=== PATIENT | male | born 1945 | race Two or more races ===

== ENCOUNTER 2022-09-05 23:27 | Inpatient (IN) | payer MEDICARE, OTHER ==
[~2022-09-05] VITALS: Ht 170.2 cm; Wt 79.4 kg
[2022-09-06] MEDS ORDERED: TDAP [DIPH/PERTUSSIS/TET] 0.5 ML VIAL IM ONE ×2 (00:28)
[2022-09-06] MEDS ORDERED: LORAZEPAM INJ 2 MG/ML VIAL ONE (00:52)
[2022-09-06] MEDS ORDERED: LORAZEPAM INJ 2 MG/ML VIAL IV ONE (01:00)
--- NOTE | 2022-09-06 01:04 | NUR ---
EARL SENT TO LAB
[2022-09-06 01:29] LABS: BASOPHILS % (AUTO) 0.4 % (0.0-2.0); EOSINOPHILS % (AUTO) 0.6 % (0.0-6.0); HEMATOCRIT 40 % (39-51); HEMOGLOBIN 13.6 g/dL (13.5-17.5); LYMPHOCYTES # (AUTO) 1.1 K/uL (0.8-4.8); LYMPHOCYTES % (AUTO) 10.5 % (20.0-44.0); MEAN CORPUSCULAR HGB CONC 34 g/dl (31.0-36.0); MEAN CORPUSCULAR VOLUME 93 fL (80-96); MONOCYTES # (AUTO) 0.6 K/uL (0.1-1.30); MONOCYTES % (AUTO) 5.6 % (2.0-12.0); NEUTROPHILS # (AUTO) 8.5 K/uL (1.8-8.9); NEUTROPHILS % (AUTO) 82.9 % (43.0-81.0); PLATELET COUNT (AUTO) 238 K/uL (150-450); RED BLOOD CELL COUNT(AUTO) 4.35 MIL/uL (4.5-6.0); WHITE BLOOD COUNT (AUTO) 10.2 K/uL (4.3-11.0)
[2022-09-06] MEDS ORDERED: LIDOCAINE HCL/MPF 1% 30 ML VIAL IJ ONE (01:33)
[2022-09-06 01:46] LABS: ALANINE AMINOTRANSFERASE 23 U/L (12-78); ALKALINE PHOSPHATASE 80 U/L (46-116); ASPARTATE AMINOTRANSFERASE 20 U/L (15-37); BILIRUBIN,DIRECT 0.1 mg/dL (0.0-0.2); BILIRUBIN,TOTAL 0.3 mg/dL (0.2-1.0); CARBON DIOXIDE 20 mmol/L (21-32); CHLORIDE 102 mmol/L (98-107); CREATININE 1.3 mg/dL (0.6-1.3); GLUCOSE 158 mg/dL (74-106); POTASSIUM 4.1 mmol/L (3.5-5.1); SODIUM SERUM 135 mmol/L (136-145); TOTAL PROTEIN, SERUM 7.8 g/dL (6.4-8.2); UREA NITROGEN, BLOOD 12 mg/dL (7-18)
--- NOTE | 2022-09-06 03:01 | NUR ---
pt pulled out iv. inserted a new line R hand, #22g, SL.
[2022-09-06] MEDS ORDERED: AMOX/CLAVULANATE 875 MG TABLET PO ONE (04:00)
--- NOTE | 2022-09-06 04:18 | NUR ---
pt is very altered/confused. PO antibiotic withheld for now. MD aware.
[2022-09-06] MEDS ORDERED: HYDROCODONE/APAP 5/325MG TABLET PO PRN (05:30)
[2022-09-06] MEDS ORDERED: ACETAMINOPHEN 325 MG TABLET PO PRN (05:30)
[2022-09-06] MEDS ORDERED: LORAZEPAM INJ 2 MG/ML VIAL IV PRN (05:30)
[2022-09-06] MEDS ORDERED: MAGNESIUM HYDROXIDE 30 ML UDC PO PRN (05:30)
[2022-09-06] MEDS ORDERED: MORPHINE SULFATE INJ 2 MG/ML DISP.SYRIN IV PRN (05:30)
[2022-09-06 06:32] VITALS: BP 122/64
--- NOTE | 2022-09-06 06:41 | NUR ---
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
--- NOTE | 2022-09-06 06:46 | NUR ---
RECEIVED PATIENT FROM ED AT 0632 [facility] [employer]. A/O X1. BREATHING EVEN AND NON-LABORED, ON O2 AT 4LPM VIA NASAL CANULA. HAS RIGHT HAND IV ACCESS #22G AND SALINE LOCKED. VITAL SIGNS TAKEN. SAFETY MEASURES IN PLACE. WILL ENDORSE TO NEXT SHIFT TO CONTINUE ADMISSION.
[2022-09-06 08:00] VITALS: BP 117/56
[2022-09-06] MEDS ORDERED: DOCUSATE SODIUM 100 MG CAPSULE PO SCH (09:00)
[2022-09-06] MEDS: PANTOPRAZOLE 40 MG TABLET.DR PO SCH (09:08)
[2022-09-06] MEDS: LamoTRIgine 100 MG TABLET PO SCH ×2 (09:08→20:18)
[2022-09-06] MEDS: LEVETIRACETAM (250 MG) 250 MG TABLET PO SCH ×2 (09:09→17:11)
[2022-09-06] MEDS: LEVOTHYROXINE SODIUM 75 MCG TABLET PO SCH (09:09)
[2022-09-06] MEDS: QUETIAPINE FUMARATE 25 MG TABLET PO SCH ×2 (09:11→17:11)
[2022-09-06] MEDS: ENOXAPARIN SODIUM 40 MG/0.4 ML DISP.SYRIN SQ SCH (12:17)
--- NOTE | 2022-09-06 14:00 | NUR ---
PATIENT NOTED TRYING TO GET OUT OF THE BED, REMOVING DIAPER AND CLOTHES, TRIED REMOVING PERIPHERAL LINE, REORRIENTED THE PATIENT BUT STILL KEEP DOING IT, INFORMED DR. ADAMS WITH ORDER FOR RESTRAINT, NOTED AND CARRIED OUT.
[2022-09-06] MEDS: DOCUSATE SODIUM LIQ 100 MG/10 ML UDC PO SCH (17:11)
--- NOTE | 2022-09-06 18:48 | NUR ---
MED SURG CLOSING NOTES PATIENT AWAKE, A/O X1. BREATHING EVEN AND NON-LABORED, ON O2 AT 4LPM VIA NASAL CANULA, NOT IN ANY DISTRESS, HAS RIGHT HAND IV ACCESS #22G PATENT AND INTACT, FLUSHES WELL, COVERED WITH KERLIX. BILATERAL SOFT WRIST RESTRAINT INTACT, CHECK FOR SKIN AND CIRCULATION. BED IN LOWEST POSITION. CALL LIGHT WITHIN REACH. SAFETY MEASURES IN PLACED. BED ALARM ON. WILL ENDORSE TO NIGHT NURSE FOR MARIUSZ.
--- NOTE | 2022-09-06 19:00 | NUR ---
RN OPENING NOTE RECEIVED PT ASLEEP IN BED. PT IS A/O X 1, KHMER SPEAKING, ABLE TO SPEAK AND UNDERSTAND SIMPLE INDONESIAN. PT IS 4L O2 INHALATION VIA NASAL CANNULA, TOLERATING WELL,BREATHING EVEN AND UNLABORED @ THIS TIME. PT IV PRESENT AT RIGHT HAND #22G SALINE LOCK, PATENT, INTACT AND FLUSHES WELL W/ NO S &SX OF INFILTRATION @ SITE NOTED. PT IS ON DIAPER. SAFETY MEASURE IS IN PLACE. BED IN LOWEST AND LOCKED POSITION. SIDE RAILS UP X 2. BEDSIDE TABLE AND CALL LIGHT IS WITHIN REACH. BED ALARM IS ON. WILL CONTINUE TO MONITOR PT ACCORDINGLY.
[2022-09-06 21:00] VITALS: BP 137/84
[2022-09-06] MEDS: OLANZAPINE 5 MG TABLET PO SCH (21:40)
[2022-09-07 05:00] VITALS: BP 151/93
--- NOTE | 2022-09-07 06:38 | NUR ---
RN CLOSING NOTE PT ASLEEP & RESTING COMFORTABLY IN BED. PT IS A/O X 1, GERMAN SPEAKING, RESPONSIVE. PT IS 4L O2 INHALATION VIA NASAL CANNULA, W/ NO S & SX OF RESPIRATORY DISTRESS @ THIS TIME. PT IV PRESENT AT RIGHT HAND #22G SALINE LOCK, PATENT, INTACT AND FLUSHES WELL W/ NO S &SX OF INFILTRATION @ SITE NOTED. PT DIAPER CHANGE X 4. PT KEPT CLEAN & DRY. ADMINISTERED MEDICATION ACCORDINGLY PER MD'S ORDER. SAFETY MEASURE IS IN PLACE. BED IN LOWEST AND LOCKED POSITION. SIDE RAILS UP X 2. BEDSIDE TABLE AND CALL LIGHT IS WITHIN REACH. BED ALARM IS ON. WILL ENDORSE TO THE NEXT ENDORSEMENT FOR MARIUSZ.
[2022-09-07 07:09] LABS: BASOPHILS # (AUTO) 0.1 K/uL (0.0-0.2); BASOPHILS % (AUTO) 0.7 % (0.0-2.0); HEMATOCRIT 45 % (39-51); LYMPHOCYTES # (AUTO) 1.9 K/uL (0.8-4.8); LYMPHOCYTES % (AUTO) 21.1 % (20.0-44.0); MEAN CORPUSCULAR HGB CONC 33 g/dl (31.0-36.0); MEAN CORPUSCULAR VOLUME 94 fL (80-96); MONOCYTES # (AUTO) 1.2 K/uL (0.1-1.30); MONOCYTES % (AUTO) 13.9 % (2.0-12.0); NEUTROPHILS # (AUTO) 5.3 K/uL (1.8-8.9); NEUTROPHILS % (AUTO) 60.3 % (43.0-81.0); PLATELET COUNT (AUTO) 241 K/uL (150-450); RED BLOOD CELL COUNT(AUTO) 4.81 MIL/uL (4.5-6.0); WHITE BLOOD COUNT (AUTO) 8.8 K/uL (4.3-11.0)
[2022-09-07 07:18] LABS: CALCIUM, SERUM 9.2 mg/dL (8.5-10.1); CARBON DIOXIDE 26 mmol/L (21-32); CHLORIDE 104 mmol/L (98-107); CREATININE 0.9 mg/dL (0.6-1.3); GLUCOSE 107 mg/dL (74-106); SODIUM SERUM 139 mmol/L (136-145); UREA NITROGEN, BLOOD 8 mg/dL (7-18)
[2022-09-07 08:09] LABS: THYROID STIMULATING HORMONE 2.202 uIU/mL (0.358-3.74)
--- NOTE | 2022-09-07 10:22 | NUR ---
RN NOTE GAVE REPORT TO HARRIETT APONTE FOR CONTUITY OF CARE
[2022-09-07] MEDS: LEVETIRACETAM (250 MG) 250 MG TABLET PO SCH ×2 (11:28→18:30)
[2022-09-07] MEDS: LEVOTHYROXINE SODIUM 75 MCG TABLET PO SCH (11:29)
[2022-09-07] MEDS: LamoTRIgine 100 MG TABLET PO SCH ×2 (11:29→22:46)
[2022-09-07] MEDS: DOCUSATE SODIUM LIQ 100 MG/10 ML UDC PO SCH ×2 (11:29→18:30)
[2022-09-07] MEDS: QUETIAPINE FUMARATE 25 MG TABLET PO SCH ×2 (11:29→18:30)
[2022-09-07] MEDS: PANTOPRAZOLE 40 MG TABLET.DR PO SCH (11:29)
[2022-09-07] MEDS: ENOXAPARIN SODIUM 40 MG/0.4 ML DISP.SYRIN SQ SCH (11:31)
[2022-09-07 13:00] VITALS: BP 126/76
[2022-09-07] MEDS ORDERED: MULT-24 PO (13:44)
[2022-09-07] MEDS ORDERED: IBUP-1953 PO (13:44)
[2022-09-07] MEDS ORDERED: LEVE500T9 PO (13:44)
[2022-09-07] MEDS ORDERED: LAMO200T10 PO (13:44)
[2022-09-07] MEDS ORDERED: IPRA3AMP23 IH (13:44)
[2022-09-07] MEDS ORDERED: PANT40TA2 PO (13:44)
[2022-09-07] MEDS ORDERED: ACET-2605 PO (13:44)
[2022-09-07] MEDS ORDERED: ONDA4TAB5 PO (13:44)
[2022-09-07] MEDS ORDERED: ASCO-352 PO (13:44)
[2022-09-07] MEDS ORDERED: SENN-261 PO (13:44)
[2022-09-07] MEDS ORDERED: QUET100T PO (13:44)
[2022-09-07] MEDS ORDERED: LEVO100T9 PO (13:44)
[2022-09-07] MEDS ORDERED: ACET-868 PO (13:44)
[2022-09-07] MEDS ORDERED: OLAN10TA3 PO (13:44)
[2022-09-07 20:00] VITALS: BP 120/60
--- NOTE | 2022-09-07 20:00 | NUR ---
RN OPENING NOTE RECEIVED PT AWAKE IN BED. PT IS A/O X 1, MALTESE SPEAKING, PT IS 4L O2 INHALATION VIA NASAL CANNULA, TOLERATING WELL,BREATHING EVEN AND UNLABORED @ THIS TIME. PT IV PRESENT AT RIGHT HAND #22G SALINE LOCK, PATENT, INTACT AND FLUSHES WELL W/ NO S &SX OF INFILTRATION .SAFETY MEASURE IS IN PLACE. BED IN LOWEST AND LOCKED POSITION. SIDE RAILS UP X 2. BEDSIDE TABLE AND CALL LIGHT IS WITHIN REACH. BED ALARM ON.ON BILATERAL WRIST RESTRAINT TO PREVENT PULLING INVASIVE TUBING WILL CONTINUE TO MONITOR PT ACCORDINGLY.
[2022-09-07] MEDS: OLANZAPINE 5 MG TABLET PO SCH (22:46)
[2022-09-08 04:00] VITALS: BP 109/83
--- NOTE | 2022-09-08 07:12 | NUR ---
RN CLOSING NOTE PT REMAIN IN BED. PT IS A/O X 1, DJIBOUTIAN SPEAKING, ON 4L O2 VIA NASAL CANNULA, W/ NO S & SX OF RESPIRATORY DISTRESS @ THIS TIME. PT IV PRESENT AT RIGHT HAND #22G SALINE LOCK, PATENT, INTACT AND FLUSHES WELL W/ NO S &SX OF INFILTRATION @ SITE NOTED. PT KEPT CLEAN & DRY. BILATERAL SOFT WRIST RESTRAINT . SAFETY MEASURE IS IN PLACE. BED IN LOWEST AND LOCKED POSITION. SIDE RAILS UP X 2. BEDSIDE TABLE AND CALL LIGHT IS WITHIN REACH. BED ALARM IS ON. WILL ENDORSE TO RN DAY SHIFT FOR CONTINUITY OF CARE..
--- NOTE | 2022-09-08 07:25 | NUR ---
RN OPENING NOTE RECEIVED PATIENT IN BED, AWAKE, A/O X1, VERBALLY RESPONSIVE. THAI SPEAKING. NO SIGNS OF ACUTE DISTRESS NOTED. ON O2 INHALATION @4LPM VIA N/C, NO SOB NOTED, BREATHING EVEN AND UNLABORED. NOTED WITH IV ACCESS ON RIGHT HAND #22G, INTACT AND PATENT SALINE LOCKED. WITH BILATERAL SOFT WRIST RESTRAINTS IN PLACE. SAFETY MEASURE IN PLACE, BED IN LOW AND LOCKED POSITION, SIDE RAILS UP X2, CALL LIGHT PLACED WITHIN EASY REACH. WILL CONTINUE TO MONITOR PATIENT.
[2022-09-08] MEDS: LEVOTHYROXINE SODIUM 75 MCG TABLET PO SCH (08:17)
[2022-09-08] MEDS: DOCUSATE SODIUM LIQ 100 MG/10 ML UDC PO SCH ×2 (08:17→16:33)
[2022-09-08] MEDS: QUETIAPINE FUMARATE 25 MG TABLET PO SCH ×2 (08:17→16:33)
[2022-09-08] MEDS: PANTOPRAZOLE 40 MG TABLET.DR PO SCH (08:17)
[2022-09-08] MEDS: LamoTRIgine 100 MG TABLET PO SCH ×2 (08:17→20:12)
[2022-09-08] MEDS: LEVETIRACETAM (250 MG) 250 MG TABLET PO SCH ×2 (08:19→16:33)
[2022-09-08] MEDS: ENOXAPARIN SODIUM 40 MG/0.4 ML DISP.SYRIN SQ SCH (11:10)
[2022-09-08 12:00] VITALS: BP 127/70
[2022-09-08 15:47] LABS: BILIRUBIN,URINE NEGATIVE (NEGATIVE); COLOR,URINE YELLOW (YELLOW); LEUKOCYTE ESTERASE ,URINE NEGATIVE (NEGATIVE); NITRITE, URINE NEGATIVE (NEGATIVE); PROTEIN,URINE NEGATIVE (NEGATIVE); UGLUCOSE NEGATIVE (NEGATIVE); UROBILINOGEN,URINE 0.2 EU/dL (0.2)
--- NOTE | 2022-09-08 18:49 | NUR ---
RN CLOSING NOTE PATIENT RESTING IN BED, VERBALLY RESPONSIVE. CYMRAES SPEAKING, ABLE TO UNDERSTAND SOME VIETNAMESE. NO SIGNS OF ACUTE DISTRESS NOTED. REMAINS ON O2 INHALATION @2LPM VIA N/C, NO SOB NOTED, BREATHING EVEN AND UNLABORED. WITH IV ACCESS ON RIGHT HAND #22G, INTACT AND PATENT SALINE LOCKED. ALL DUE MEDS GIVEN, TAKEN WELL. WITH BILATERAL SOFT WRIST RESTRAINTS IN PLACE. SAFETY MEASURE MAINTAINED, BED IN LOW AND LOCKED POSITION, SIDE RAILS UP X2, CALL LIGHT PLACED WITHIN EASY REACH. WILL ENDORSE TO NEXT SHIFT FOR MARIUSZ.
--- NOTE | 2022-09-08 19:00 | NUR ---
RN NOTES: RECEIVED ASLEEP ON BED,A/OX1, VERY HARD OF HEARING,O2 TITRATED DOWN TO 2L/MIN VIA NC PER ENDORSEMENT SPO2-95%, RH G#22 SL, HE WAS ON SOFT RESTRAIN BILATERAL HANDS DUE TO PULLING OUT HIS CANULA AND O2 INHALATION, RIGHT NOW HE IS ASLEEP, PRESENCE OF BRUISE ON THE FACIAL AREA SPECIFICALLY ON THE LEFT FOREHEAD,SEIZURE AND ASPIRATION PRECAUTION OBSERVED, . KEPT ON CLOSE WATCH. SAFETY PRECAUTION OBSERVED, KEPT CALL LIGHT WITHIN EASY REACH.FOR POSSIBLE DISCHARGE ON SNF FOR REHABILITATION, NO DIFINITE PLAN YET.
[2022-09-08 20:00] VITALS: BP 119/69
[2022-09-08] MEDS: OLANZAPINE 5 MG TABLET PO SCH (21:16)
[2022-09-09 04:00] VITALS: BP 101/60
--- NOTE | 2022-09-09 06:41 | NUR ---
RN NOTES: NO COMPLAINTS IN THE NIGHT, MORNING CARE RENDERED, NO BM, CLEAN AND CHANGE, HE IS MORE COOPERATIVE, NO SIGN OF REMOVING TUBING, RESTRAINT WAS TEMPORARILY REMOVE SINCE MIDNIGHT,REPOSITIONED,NO LABS IN THE MORNING, SKIN TREATMENT ORDERED, AFEBRILE, TO TITRATE DOWN O2, FOR snf POST HOSPITALIZATION FOR CLOSE MONITORING AND PT. ENDORSED FOR CONTINUITY OF CARE.
[2022-09-09] MEDS: DOCUSATE SODIUM LIQ 100 MG/10 ML UDC PO SCH (08:23)
[2022-09-09] MEDS: LEVOTHYROXINE SODIUM 75 MCG TABLET PO SCH (08:26)
[2022-09-09] MEDS: PANTOPRAZOLE 40 MG TABLET.DR PO SCH (08:27)
[2022-09-09] MEDS: LEVETIRACETAM (250 MG) 250 MG TABLET PO SCH (08:28)
[2022-09-09] MEDS: LamoTRIgine 100 MG TABLET PO SCH (08:28)
[2022-09-09] MEDS: QUETIAPINE FUMARATE 25 MG TABLET PO SCH (08:28)
--- NOTE | 2022-09-09 13:03 | NUR ---
RN NOTE CALLED LEEANN WADDELL, GAVE REPORT TO FADI MUNROE. NOTIIED ESTIMATED TIME OF PICK IS TODAY AT 1300.
== END 2022-09-09 13:50 | DRG 101 ==
LOC: ER 23:31 → TELE1 09-06 05:29 → MEDSG1 09-06 08:39
PROVIDERS: ADMIT Internal Medicine; ATTEND Internal Medicine
DX: G40.909 Epilepsy, unspecified, not intractable, without status epilepticus (principal); F02.83 Dementia in other diseases classified elsewhere, unspecified severity, with mood disturbance; F02.84 Dementia in other diseases classified elsewhere, unspecified severity, with anxiety; G30.9 Alzheimer's disease, unspecified; E03.9 Hypothyroidism, unspecified; F25.9 Schizoaffective disorder, unspecified; S02.2XXA Fracture of nasal bones, initial encounter for closed fracture; W01.0XXA Fall on same level from slipping, tripping and stumbling without subsequent striking against object, initial encounter; Y92.099 Unspecified place in other non-institutional residence as the place of occurrence of the external cause; E66.3 Overweight; Z68.27 Body mass index [BMI] 27.0-27.9, adult; G93.89 Other specified disorders of brain; I44.4 Left anterior fascicular block; R13.10 Dysphagia, unspecified; R73.03 Prediabetes; Z78.1 Physical restraint status; Z79.899 Other long term (current) drug therapy; Z91.81 History of falling; R26.89 Other abnormalities of gait and mobility; Z86.16 Personal history of COVID-19; R53.81 Other malaise
CPT/HCPCS: 36415; 70450-TC; 70486-TC; 71045-TC; 72125-TC; 80048-TC; 80076-TC; 84443-TC; 84484-TC; 85025-TC; 85730-TC; 87081-TC; 90715; 92526; 92611-TC; 97112-TC; 97116-TC; 97530-TC; A4349; C9803; G0378; J1650; J2060; J3490